=== PATIENT | female | born 2000 | race Caucasian/White ===

== ENCOUNTER 2022-12-22 08:04 | Day surgery (SDC) | payer BC ==
[~2022-12-22] VITALS: Ht 167.6 cm; Wt 60.8 kg
[2022-12-22 08:40] LABS: HCG SERUM/URINE (NEG/POS) NEGATIVE (NEGATIVE)
[2022-12-22] MEDS ORDERED: CORLANOR5 MG PO (09:04)
[2022-12-22] MEDS ORDERED: MIDODRINE5 MG PO (09:05)
[2022-12-22] MEDS ORDERED: PYRIDOSTIGM60 MG PO (09:06)
[2022-12-22] MEDS ORDERED: UBRELVY50 MG PO (09:07)
[2022-12-22] MEDS ORDERED: D32000 UNIT PO (09:07)
[2022-12-22] MEDS ORDERED: PROAIR HFA IN (09:08)
[2022-12-22] MEDS ORDERED: NALTREX4.5 MG PO (09:09)
[2022-12-22 11:34] VITALS: BP 115/75
== END 2022-12-22 11:25 | disposition home or self-care (01) | DRG 92 ==
LOC: ORM 08:04
PROVIDERS: ATTEND Physical Medicine & Rehabilitation
DX: G89.4 Chronic pain syndrome (principal); I77.4 Celiac artery compression syndrome; R10.12 Left upper quadrant pain